=== PATIENT | female | born 1995 | race Caucasian/White ===

== ENCOUNTER 2018-11-05 16:57 | Emergency (ER) | payer SELFPAY ==
[2018-11-05 17:46] LABS: Bilirubin Negative (Negative); Blood, Urine Negative (Negative); Clarity CLEAR (Clear); Glucose, Urine (Dipstick) Negative (Negative); Leukocyte Small (Negative); Nitrite Negative (Negative); Protein, Urine (Dipstick) Negative (Neg-Trace); Specific Gravity, Urine 1.024 (1.002-1.036); Urobilinogen 0.2 mg/dL (0.2-1.0)
[2018-11-05 17:48] LABS: Bacteria/HPF None Seen HPF (None Seen); Hyaline Casts/LPF 0-3 HYALINE CAST LPF (0-3 Hyaline); Pathc Cast-AUWi Flag 0.72 (0-2.49); Squamous Epithelial 0-3 HPF (0-3)
[2018-11-05 17:53] LABS: Pregnancy Test - Urine (BHCG) Negative (Negative); Pregu Control Background? CLEAR/WHITE (CLR/WHITE); Pregu Control Bar Appear? YES (CONTROL BAR); Specific Gravity 1.024 (1.002-1.036)
[2018-11-05] MEDS ORDERED: Ketorolac Tromethamine 30 MG/ML VIAL ONE (19:47)
--- NOTE | 2018-11-05 20:26 | ULT ---
TRANSABDOMINAL AND TRANSVAGINAL PELVIC ULTRASOUND WITH DOPPLER 11/05/18 PROVIDED CLINICAL HISTORY: Pelvic pain. FINDINGS: No comparisons. The uterus measures approximately 6.4 x 2.8 x 3.2 cm and demonstrates a normal sonographic appearance . Endometrial thickness is about 7 mm. There are multiple mass-like areas of altered echogenicity present within the pelvis about the midlin e and adnexal regions. To what extent these present ovaries versus adnexal masses is not evident on t he basis of this study. There is at least one mass which is clearly not ovary and measures about 6.7 cm in greatest transverse dimension. The other masses would not present normal ovaries if they do ind eed represent ovaries and could instead represent additional pelvic masses. There is no evidence for free pelvic fluid. IMPRESSION: Multiple pelvic masses without discrete identification of normal ovaries. CUSTOM STUDIO COORDINATOR consultation is recomme nded. POS: MAJOR
== END 2018-11-05 22:28 | disposition home or self-care (01) ==
LOC: ERS 16:57
DX: D36.7 Benign neoplasm of other specified sites (principal); J45.909 Unspecified asthma, uncomplicated
CPT/HCPCS: 76856; 81003; 81015; 81025; 96372; J1885

== ENCOUNTER 2019-01-21 15:40 | Emergency (ER) | payer SELFPAY ==
[2019-01-21 16:19] LABS: #Monocytes 0.6 thou/uL (0.11-0.59); #Neutrophils 3.3 thou/uL (1.40-6.50); %Basophils 0.7 % (0.0-1.0); %Eosinophils 0.2 % (0.0-10.0); %Lymphocytes 20.7 % (21.0-51.0); %Monocytes 12.2 % (0.0-10.0); %Neutrophils 66.2 % (42.0-75.0); Hemoglobin 12.8 g/dL (12.0-16.0); Mean Corpuscular HGB CONC 32.5 g/dL (32.0-36.0); Mean Corpuscular Volume 86.2 fL (78.0-98.0); Mean Platelet Volume 8.2 fL (7.4-10.4); Platelet Count 206 thou/uL (130-400); RBC Distribution Width 13.7 % (11.5-14.5); Red Blood Cell (RBC) Count 4.57 mill/uL (4.20-5.40); White Blood Cell (WBC) Count 4.9 thou/uL (4.8-10.8)
[2019-01-21 16:34] LABS: ALT (SGPT) 17 U/L (8-55); AST (SGOT) 23 U/L (5-34); Albumin 4.5 g/dL (3.5-5.0); Alkaline Phosphatase 73 U/L (40-150); Anion Gap 10 mmol/L (10-20); BUN (Urea Nitrogen) 5 mg/dL (7.0-18.7); Bilirubin, Total 0.4 mg/dL (0.2-1.2); Calc. Creatinine Clearance 0 mL/min (70-130); Calcium 9.5 mg/dL (7.8-10.44); Carbon Dioxide 29 mmol/L (22-29); Chloride 101 mmol/L (98-107); Estimated GFR-MDRD 89; Globulin 3.8 g/dL (2.4-3.5); Glucose 89 mg/dL (70-105); Potassium 3.7 mmol/L (3.5-5.1); Protein, Total 8.3 g/dL (6.0-8.3); Sodium 136 mmol/L (136-145)
--- NOTE | 2019-01-21 17:04 | RAD ---
PA AND LATERAL VIEWS CHEST: 01/21/19 HISTORY: Cough and fever. FINDINGS: The heart size is normal. The lungs are well expanded and clear. Postop changes of left clavicular fi xation with plate and screws are seen. IMPRESSION: No radiographic evidence of acute cardiopulmonary process. POS: OFF
[2019-01-21] MEDS ORDERED: Albuterol Sulfate 2.5 mg/0.5 ml Neb ONE (17:25)
[2019-01-21] MEDS ORDERED: Albuterol Sulfate 2.5 mg/3 ml Neb ONE (17:25)
[2019-01-21] MEDS ORDERED: Acetaminophen 500 MG TAB ONE (17:33)
[2019-01-21] MEDS ORDERED: Ketorolac Tromethamine 30 MG/ML VIAL ONE (17:33)
== END 2019-01-21 18:25 | disposition home or self-care (01) ==
LOC: ERS 15:40
DX: J10.1 Influenza due to other identified influenza virus with other respiratory manifestations (principal); J45.909 Unspecified asthma, uncomplicated
CPT/HCPCS: 36415; 71046; 80053; 83605; 85025; 87040; 87804; 94640; 96372; J1885; J7611